=== PATIENT | female | born 1965 | race Caucasian/White ===

== ENCOUNTER 2017-09-08 03:10 | Emergency (ER) | payer BC ==
[~2017-09-08] VITALS: Ht 165.1 cm; Wt 73.9 kg
[2017-09-08] MEDS ORDERED: IOHEXOL 240 MG/ML 50ML VIAL. ONE (03:38)
--- NOTE | 2017-09-08 03:44 | PHYS DOC ---
Adult General Chief Complaint Chief Complaint: ABDOMINAL PAIN HPI HPI Patient is a 52-year-old female presents with complaints of abdominal pain that has been ongoing for 5 days. Patient states she's had low grade fevers, no vomiting, no diarrhea, no chest pain, no back pain, no trauma. Patient has had her gallbladder and appendix removed, no recent surgeries. No known sick contacts, patient denies any unusual vaginal discharge or problems with urination. Patient has no other complaints other than diffuse abdominal pain. Denies alcohol or illicit drug use. later pt states she has had non bloody vomiting at home. Review of Systems Review of Systems Constitutional: No chills, subjective fevers HENT: Denies nasal congestion or sore throat [] Respiratory: Denies cough or shortness of breath [] Cardiovascular: No chest pain GI: As per history of present illness : Denies dysuria or hematuria or vaginal discharge Musculoskeletal: Denies back pain or joint pain [] Integument: Denies rash or skin lesions [] Neurologic: Denies headache, focal weakness or sensory changes [] All other systems were reviewed and found to be within normal limits, except as documented in this note. Current Medications Current Medications Current Medications Medications (Trade) Dose Ordered Sig/Berna Start Time Stop Time Status Last Admin Dose Admin Iohexol (Omnipaque 240 Mg/ml) 50 ml STK-MED ONCE 09/08/17 03:38 09/08/17 03:39 DC Sodium Chloride 1,000 ml @ 1,000 mls/hr 1X ONCE 09/08/17 03:45 09/08/17 04:44 UNV Physical Exam Physical Exam Constitutional: Well developed, well nourished, no acute distress, non-toxic appearance. [] HENT: Normocephalic, atraumatic, bilateral external ears normal, oropharynx dry , no oral exudates, nose normal. [] Eyes: EOMI, conjunctiva normal, no discharge. [] Neck: Normal range of motion, trachea midline no stridor. [] Cardiovascular: Tachycardia, equal pulses, normal perfusion Lungs & Thorax: Bilateral breath sounds clear to auscultation, no tachypnea Abdomen: Bowel sounds normal, soft, diffuse tenderness to palpation mostly in upper abdomen without guarding or rebound, no masses, no pulsatile masses. [] Skin: Warm, dry, no erythema, no rash. [] Back: No tenderness, no CVA tenderness. [] Extremities: No tenderness, no DVT, ROM intact, no edema. [] Neurologic: Alert and oriented X 3, normal motor function,, no focal deficits noted. [] Psychologic: Affect normal, judgement normal, mood normal. [] EKG EKG 0347 sinus tachycardia, 112, no stemi[] Radiology/Procedures Radiology/Procedures CT read noted for acute pancreatitis[] Course & Med Decision Making Course & Med Decision Making Pertinent Labs and Imaging studies reviewed. (See chart for details) Findings discussed with Dr Villanueva who agrees is best to transfer patient to [place] [] Dragon Disclaimer Dragon Disclaimer This electronic medical record was generated, in whole or in part, using a voice recognition dictation system. Departure Departure: Impression: Primary Impression: Pancreatitis Additional Impressions: Acute renal failure (ARF) Dehydration Hypocalcemia Disposition: 05 XFER OTHER Condition: GUARDED Referrals: JOANN URIAS (PCP) Problem Qualifiers Eliecer GONZALEZ MD Sep 08, 2017 03:44
[2017-09-08] MEDS ORDERED: IV NORMAL SALINE 1,000ML 1,000 ML IV ONE ×2 (03:45→05:15)
--- NOTE | 2017-09-08 03:49 | EKG ---
[address] [address] Test Date: 2017-09-08 Test Time: 03:46:09 Pat Name: REA ESPINO Department: Room: Gender: F Ham Passer: YESENIA : 1965 Requested By: Eliecer GONZALEZ Order Number: [id number] Reading MD: Measurements Intervals [place] Rate: 112 P: 40 MO: 122 QRS: 24 QRSD: 76 T: 31 QT: 350 QTc: 479 Interpretive Statements SINUS TACHYCARDIA QRS(T) CONTOUR ABNORMALITY CONSIDER ANTEROLATERAL MYOCARDIAL DAMAGE POSSIBLY ABNORMAL ECG RI6.01 No previous ECG available for comparison
[2017-09-08] MEDS ORDERED: HYOSCYAMINE 0.125 MG TAB.RAPDIS PO ONE (04:30)
[2017-09-08] MEDS ORDERED: KETOROLAC 15 MG/ML VIAL. IV ONE (04:30)
[2017-09-08 04:38] LABS: BACTERIA,URINE FEW /HPF (0-FEW); BILIRUBIN,URINE NEG (NEG); CLARITY,URINE CLEAR; COLOR,URINE YELLOW; GLUCOSE,URINE NEG (NEG); NITRITE,URINE NEG (NEG); UROBILINOGEN,URINE 0.2 mg/dL (0.2 mg/dL); WBC,URINE OCC /HPF (0-4)
[2017-09-08 04:39] LABS: AMORPHOUS SEDIMENT,UR PRESENT /HPF; SQUAMOUS EPITHELIAL CELL,UR FEW /LPF
[2017-09-08 04:42] LABS: HEMOGLOBIN 13.5 g/dL (12.0-15.5)
[2017-09-08 04:43] LABS: BASO % 1 % (0-3); EOS % 0 % (0-3); HEMATOCRIT 41.1 % (36.0-47.0); LYMPH # 1.3 x10^3/uL (1.0-4.8); LYMPH % 5 % (24-48); MEAN CORPUSCULAR HEMOGLOBIN 29 pg (25-35); MEAN CORPUSCULAR HGB CONC 33 g/dL (31-37); MEAN CORPUSCULAR VOLUME 87 fL (79-100); MONO % 5 % (0-9); NEUT # 23.3 x10^3uL (1.8-7.7); NEUT % 90 % (31-73); PLATELET COUNT 259 x10^3/uL (140-400); RED CELL DISTRIBUTION WIDTH 14.5 % (11.5-14.5)
[2017-09-08 04:44] LABS: BASO # 0.2 x10^3/uL (0.0-0.2); EOS # 0.1 x10^3/uL (0.0-0.7); MONO # 1.2 x10^3/uL (0.0-1.1)
[2017-09-08] MEDS ORDERED: CONTRAST GIVEN MC PRN (04:45)
[2017-09-08] MEDS ORDERED: IOHEXOL 300 MG/ML 75 ML VIAL. IV ONE (04:45)
[2017-09-08 04:48] LABS: ALBUMIN/GLOBULIN RATIO 0.9 (1.0-1.7); CALCIUM 6.5 mg/dL (8.5-10.1); CREATININE 5.6 mg/dL (0.6-1.0); GFR 7.9; POTASSIUM 3.9 mmol/L (3.5-5.1); TOTAL BILIRUBIN 0.7 mg/dL (0.2-1.0); TOTAL PROTEIN 6.3 g/dL (6.4-8.2)
[2017-09-08 05:01] LABS: BARBITURATES NEG (NEG); BENZODIAZEPINES NEG (NEG); CANNABINOIDS NEG (NEG); COCAINE NEG (NEG); METHADONE NEG (NEG); OPIATES NEG (NEG); PHENCYCLIDINE NEG (NEG)
[2017-09-08 05:02] LABS: AMPHETAMINE/METHAMPHETAMINE NEG (NEG)
[2017-09-08 05:21] LABS: % SEGS 91 % (35-66)
[2017-09-08 05:22] LABS: % EOS 1 % (0-5); % LYMPHS 6 % (24-48); % MONOS 2 % (0-10); ANISOCYTOSIS SLIGHT; PLT ESTIMATE ADEQUATE (ADEQUATE); SPHEROCYTES OCC; TEAR DROP CELLS OCC
--- NOTE | 2017-09-08 05:30 | RAD ---
PQRS Compliance Statement: One or more of the following individualized dose reduction techniques were utilized for this examination: 1. Automated exposure control 2. Adjustment of the mA and/or kV according to patient size 3. Use of iterative reconstruction technique CT ABD PELV W/ORAL IV CONTRAST Clinical Indication: Generalized abdominal pain x5 days - worsening. Appendectomy and cholecystectomy. Comparison: CT abdomen and pelvis without contrast, December 30, 2013. Technique: Helical CT imaging of the abdomen and pelvis is performed after 75 cc Omnipaque 300 IV contrast. Oral contrast also given. Findings: Small left pleural effusion. Mild consolidations in the posterior bilateral lower lobes, probably atelectasis. Mild scarring or atelectasis in the inferior lingula. Cardiac size normal. There is severe peripancreatic inflammation and fluid. There is hypoenhancement at the pancreas head/body junction and developing necrosis cannot be excluded. There is no organized pseudocyst. Free fluid tracks along the bilateral paracolic gutters, moderate. There is mild right subphrenic free fluid. There is hyperenhancement of the wall of the extrahepatic duct. No filling defect is identified by CT. Cholecystectomy. Liver, spleen, adrenal glands, and abdominal aorta caliber are normal. No hydronephrosis. Small left renal cyst. Stomach unremarkable. No small bowel obstruction. There is no colon wall thickening. Appendectomy. Small fat-containing umbilical hernia. Urinary bladder is normal. Uterus unremarkable. Mild pelvic free fluid. No acute bone abnormality. IMPRESSION: 1. There is severe acute pancreatitis. There is hypoenhancement at the pancreas head/body junction, cannot exclude developing necrosis. No pancreas pseudocyst. 2. Moderate fluid tracks along the bilateral paracolic gutters. There is mild pelvic free fluid. 3. Hyperenhancement of the wall of the extrahepatic bile duct. The enhancement may be reactive due to surrounding inflammation. Cholangitis also in the differential. 4. Small left pleural effusion. Mild posterior bilateral lower lobe consolidations, probably atelectasis in the absence of respiratory symptoms. Electronically signed by: Mariano Godoy MD (09/08/2017 5:27 AM) [facility]
[2017-09-08] MEDS ORDERED: MORPHINE SULFATE 4 MG/ML DISP.SYRIN. IV ONE (06:00)
[2017-09-08] MEDS ORDERED: HYDROmorphone PF 1 MG/ML DISP.SYRIN IV ONE (06:00)
[2017-09-08] MEDS ORDERED: HYDROmorphone PF 2 MG/ML VIAL IV ONE (06:00)
[2017-09-08 06:36] VITALS: BP 145/84
== END 2017-09-08 07:17 | disposition short-term general hospital (02) ==
LOC: ER 03:10
DX: K85.90 Acute pancreatitis without necrosis or infection, unspecified (principal); N17.9 Acute kidney failure, unspecified; E83.51 Hypocalcemia; E86.0 Dehydration; Z90.49 Acquired absence of other specified parts of digestive tract
CPT/HCPCS: 36415; 74177; 80053; 80307; 81001; 82310; 83690; 83735; 84484; 85007; 85025; 93005; 96361; 96374; 96375; 99285; J1170; J1885; Q9967; G0479; J7030

== ENCOUNTER → 2019-07-29 | Day surgery (SDC) | payer BC ==
[~2019-07-29] MED LIST: ACETAMINOPHEN 325 MG TABLET PO PRN; ALBUTEROL SULFATE 2.5 MG/3 ML NEBU. NEB PRN; ATROPINE 0.5 MG/5 ML DISP.SYRIN. IV PRN; BUPR100T7 PO; FLUO10CA13 PO; IV RINGERS SOLUTION,LACTATED 1,000 ML IV SCH; METH2.5T PO; MIDAZOLAM HCL PF 2 MG/2 ML VIAL. IV PRN; OLAN2.5T3 PO; ONDANSETRON PF 4 MG/2 ML VIAL. IV PRN; PHENOL ORAL SPRAY 177ML BOTTLE. MM PRN; PROPOFOL 20 ML IV ONE; diphenhydrAMINE 50 MG/ML VIAL IV PRN
[2019-07-29 09:00] VITALS: BP 112/64
--- NOTE | 2019-07-30 15:07 | PATHOLOGY ---
[facility] Accession Number: [id number] . 01 Material submitted: . PART A: cecum - CECAL POLYP BX PART B: colon - TRANSVERSE POLYP BX. Modifiers: transverse . 01 Clinical history: . CRC screen . 02 Diagnosis: A. Colon biopsies, cecal polyp: - Tubular adenoma. . B. Colon biopsies, transverse colon polyp: - Tubular adenoma. . (JPM:juan; 07/30/2019) QMS 07/30/2019 0844 Local . 02 Comment: There is no high grade dysplasia or evidence of malignancy. . 02 Electronically signed: . Montez Martinez MD, Pathologist NPI- [id number] . 01 Gross description: . A. The specimen is received in formalin, labeled "Michel, Isaura, cecal polyp BX" and consists of 2 fragments of pink-abbott tissue measuring 0.3 x 0.3 cm each which are entirely submitted in A1. . B. The specimen is received in formalin, labeled "Michel, Isaura, transverse polyp BX" and consists of 3 fragments of pink-abbott tissue measuring between 0.2 x 0.2 cm and 0.4 x 0.3 cm which are entirely submitted in B1. (SDY; 07/29/2019) SYU/SYU 07/30/2019 0843 Local . 02 Pathologist provided ICD-10: D12.0, D12.3 . 02 CPT . 495028, 644945 Specimen Comment: A courtesy copy of this report has been sent to [phone] Specimen Comment: [id number] Specimen Comment: Report sent to / DR URIAS Performed at: [address], [place], [place] [id number] MD Saji Watts MD Phone: [phone] Performed at: [address] [id number] MD Montez Martinez MD Phone: [phone]
== END | disposition home or self-care (01) ==
LOC: SURG 07:01
PROVIDERS: ATTEND Emergency Medicine
DX: Z12.11 Encounter for screening for malignant neoplasm of colon (principal); D12.3 Benign neoplasm of transverse colon; D12.0 Benign neoplasm of cecum; J45.909 Unspecified asthma, uncomplicated; F32.9 Major depressive disorder, single episode, unspecified; Z86.010 Personal history of colon polyps; Z79.899 Other long term (current) drug therapy; Z98.890 Other specified postprocedural states; Z88.0 Allergy status to penicillin; Z88.6 Allergy status to analgesic agent; Z88.8 Allergy status to other drugs, medicaments and biological substances; Z72.89 Other problems related to lifestyle
CPT/HCPCS: 45380; 88305; J2704; J7120

== ENCOUNTER 2021-06-09 12:50 | Emergency (ER) | payer BC ==
[~2021-06-09] VITALS: Ht 163.8 cm; Wt 54.7 kg
[~2021-06-09 12:50] MED LIST changes: -ACETAMINOPHEN 325 MG TABLET PO PRN; -ALBUTEROL SULFATE 2.5 MG/3 ML NEBU. NEB PRN; -ATROPINE 0.5 MG/5 ML DISP.SYRIN. IV PRN; -IV RINGERS SOLUTION,LACTATED 1,000 ML IV SCH; -MIDAZOLAM HCL PF 2 MG/2 ML VIAL. IV PRN; -ONDANSETRON PF 4 MG/2 ML VIAL. IV PRN; -PHENOL ORAL SPRAY 177ML BOTTLE. MM PRN; -PROPOFOL 20 ML IV ONE; -diphenhydrAMINE 50 MG/ML VIAL IV PRN
--- NOTE | 2021-06-09 14:45 | EKG ---
[address] [address] Test Date: 2021-06-09 Test Time: 14:35:15 Pat Name: REA ESPINO Department: Room: Gender: F Credit Verification Clerk: CELINA : 1965 Requested By: PEGGY ALVAREZ Order Number: [id number] Reading MD: Measurements Intervals [place] Rate: 102 P: 39 VT: 124 QRS: 25 QRSD: 90 T: 106 QT: 352 QTc: 463 Interpretive Statements SINUS TACHYCARDIA T ABNORMALITY IN INFERIOR LEADS ABNORMAL ECG RI6.02 No previous ECG available for comparison
--- NOTE | 2021-06-09 14:48 | PHYS DOC ---
Past History Past Medical History: Anxiety, Depression, Pneumonia Past Surgical History: Appendectomy, Cholecystectomy Alcohol Use: None Drug Use: None General Adult EDM: Chief Complaint: SHORTNESS OF BREATH HPI: HPI: 55-year-old female presents with shortness of breath. Her shortness of breath came on relatively suddenly today. She has been feeling a little bit more short of breath last couple of days but today is much worse. Patient was diagnosed COVID-19 +6 days ago. She has been vaccinated, second Pfizer shot in January. Patient has no previous history of cardiac or lung disease. She denies chest pain or diaphoresis. The patient is requiring 4 L of oxygen and she has not previously been on oxygen. Review of Systems: Review of Systems: Constitutional: Denies fever or chills Eyes: Denies change in visual acuity HENT: Denies nasal congestion or sore throat Respiratory: Cough with shortness of breath Cardiovascular: Denies chest pain or edema GI: Denies abdominal pain, nausea, vomiting, bloody stools or diarrhea : Denies dysuria Musculoskeletal: Denies back pain or joint pain Integument: Denies rash Neurologic: Denies headache, focal weakness or sensory changes Endocrine: Denies polyuria or polydipsia Lymphatic: Denies swollen glands Psychiatric: Denies depression or anxiety Allergies: Allergies: Allergies Coded Allergies Type Severity Reaction Last Updated Verified Penicillins Allergy Unknown 06/09/21 Yes methadone Allergy Unknown 06/09/21 Yes morphine Allergy Unknown 06/09/21 Yes Physical Exam: PE: Constitutional: Well developed, well nourished, no acute distress, non-toxic appearance. [] HENT: Normocephalic, atraumatic, bilateral external ears normal, oropharynx moist, no oral exudates, nose normal. [] Eyes: PERRLA, EOMI, conjunctiva normal, no discharge. [] Neck: Normal range of motion, no tenderness, supple, no stridor. [] Cardiovascular:Heart rate regular rhythm, no murmur [] Lungs & Thorax: Bilateral breath sounds coarse and diminished [] Abdomen: Bowel sounds normal, soft, no tenderness, no masses, no pulsatile masses. [] Skin: Warm, dry, no erythema, no rash. [] Back: No tenderness, no CVA tenderness. [] Extremities: No tenderness, no cyanosis, no clubbing, ROM intact, no edema. [] Neurologic: Alert and oriented X 3, normal motor function, normal sensory function, no focal deficits noted. [] Psychologic: Affect normal, judgement normal, mood concerned. [] Current Patient Data: Vital Signs: Vital Signs Date Time Temp Pulse Resp B/P (MAP) Pulse Ox O2 Delivery O2 Flow Rate FiO2 06/09/21 14:21 97.7 101 24 108/72 (84) 88 Room Air EKG: EKG: Sinus rhythm, rate 102, axis, no ST elevation or depression. [] Radiology/Procedures: Radiology/Procedures: [] Impressions: Study: CT CHEST WITH CONTRAST - PULMONARY ANGIOGRAM History: Covid positive, sudden onset shortness of breath needing 4 L. Comparison: Chest 06/09/2021 Technique: Helical CT of the chest performed after the administration of 75 mm Omnipaque 350 intravenous contrast and timed for angiographic evaluation of the pulmonary arteries per PE protocol. Coronal and sagittal 3D MIP reformations were obtained. One or more of the following individualized dose reduction techniques were utilized for this examination: 1. Automated exposure control 2. Adjustment of the mA and/or kV according to patient size 3. Use of iterative reconstruction technique. Findings: Pulmonary Arteries: Contrast bolus is adequate. There is no acute pulmonary embolism. Heart/Systemic Vasculature: There is normal in size. No pericardial effusion. Thoracic aorta is normal in caliber. Mediastinum: There is an enlarged right prevascular lymph node measuring 1.4 x 0.8 cm. Prominent precarinal lymph node measuring 1.5 x 0.8 cm. Enlarged subcarinal lymph node measuring 2.4 x 1.0 cm. There are mildly enlarged right hilar lymph nodes. Lungs: There are patchy consolidative opacities in the right lower lobe, greatest peripherally. Diffuse tree-in-bud nodules in the right lower lobe. Milder scattered tree-in-bud nodules and mild scattered groundglass opacities elsewhere in both lungs. There is airway wall thickening. Mucous plugging seen in the right lower lobe. No pleural effusion. Neck/Axilla/Body Wall: No axillary lymphadenopathy. Upper Abdomen: There is a 1.9 x 0.8 cm hypoattenuating lesion along falciform ligament, likely focal fat. Surgical changes of cholecystectomy. Bones: No acute osseous abnormality. IMPRESSION: 1. No acute pulmonary embolism. 2. Consolidative and tree-in-bud opacities in the right lower lobe. Scattered tree-in-bud opacities and mild scattered groundglass opacities elsewhere in the lungs. Findings are suspicious for atypical pneumonia. 3. Mild mediastinal and hilar lymphadenopathy, likely reactive. Electronically signed by: Pamella Stanford MD (06/09/2021 5:04 PM) [id number] DICTATED AND SIGNED BY: PAMELLA STANFORD MD DATE: 06/09/215 CC: PEGGY ALVAREZ DO; JOANN URIAS ~MTH0 0 Heart Score: C/O Chest Pain: N/A Risk Factors: Risk Factors: DM, Current or recent (<one month) smoker, HTN, HLP, family history of CAD, obesity. Risk Scores: Score 0 - 3: 2.5% MACE over next 6 weeks - Discharge Home Score 4 - 6: 20.3% MACE over next 6 weeks - Admit for Clinical Observation Score 7 - 10: 72.7% MACE over next 6 weeks - Early Invasive Strategies Course & Med Decision Making: Course & Med Decision Making Pertinent Labs and Imaging studies reviewed. (See chart for details) The patient's EKG is unremarkable. Her labs are remarkable for an elevated white count with a left shift. She has a CO2 of 9 and an anion gap of 25, blood sugar 400. Patient has not been taking her insulin for some reason. I have ordered a liter normal saline and 10 units of insulin. The patient CT scan shows bilateral atypical pneumonia consistent with COVID-19. I will treat her with azithromycin given her penicillin allergy. She will need to be admitted to the hospital for her new oxygen demand and to deal with her DKA. The patient's initial 2 units of insulin will decrease her blood sugar to 231. I believe her blood sugar can be managed without an insulin drip. I spoke with hospitalist, Dr. Ortiz and he is in agreement. He is agreed admit the patient to the telemetry floor. [] Solange Disclaimer: Solange Disclaimer: This electronic medical record was generated, in whole or in part, using a voice recognition dictation system. Departure Departure: Impression: Primary Impression: COVID-19 Additional Impression: DKA (diabetic ketoacidosis) Qualified Codes: E11.10 - Type 2 diabetes mellitus with ketoacidosis without coma Disposition: ADMITTED INPATIENT Admitting Physician: Ho, Trino Condition: STABLE Referrals: JOANN URIAS (PCP) PEGGY ALVAREZ DO Jun 09, 2021 14:47
[2021-06-09] MEDS ORDERED: IOHEXOL 350 MG/ML 100 ML VIAL. IV ONE (15:00)
[2021-06-09 15:15] LABS: BASO % 0 % (0-3); EOS % 0 % (0-3); HEMATOCRIT 46.3 % (36.0-47.0); LYMPH # 1.1 x10^3/uL (1.0-4.8); LYMPH % 7 % (24-48); MEAN CORPUSCULAR HEMOGLOBIN 29 pg (25-35); MEAN CORPUSCULAR HGB CONC 32 g/dL (31-37); MEAN CORPUSCULAR VOLUME 90 fL (79-100); MONO # 1.7 x10^3/uL (0.0-1.1); MONO % 11 % (0-9); NEUT # 13.2 x10^3uL (1.8-7.7); NEUT % 82 % (31-73); PLATELET COUNT 332 x10^3/uL (140-400); RED BLOOD COUNT 5.17 x10^6/uL (3.50-5.40); RED CELL DISTRIBUTION WIDTH 13.7 % (11.5-14.5)
[2021-06-09] MEDS ORDERED: IV NORMAL SALINE 1,000ML 1,000 ML IV ONE (15:15)
--- NOTE | 2021-06-09 15:16 | RAD ---
Single view of the chest. 06/09/2021 3:00 PM Indication: Reason: SOB / Comparison: chest radiograph May 13, 2024 2 Findings: There is no focal consolidation. There is no pleural effusion or pneumothorax. The cardiome diastinal silhouette and pulmonary vasculature are within normal limits. No acute osseous abnormaliti es are seen. Impression: No evidence of acute cardiopulmonary process. Electronically signed by: Josh Forbes MD (06/09/2021 3:14 PM) [id number]
[2021-06-09 15:31] LABS: ALBUMIN 3.5 g/dL (3.4-5.0); ALBUMIN/GLOBULIN RATIO 0.6 (1.0-1.7); CALCIUM 10.5 mg/dL (8.5-10.1); CREATININE 1.1 mg/dL (0.6-1.0); GFR 51.2; TOTAL BILIRUBIN 0.5 mg/dL (0.2-1.0); TOTAL PROTEIN 9.1 g/dL (6.4-8.2)
[2021-06-09 16:00] LABS: % BANDS 23 % (0-9); % LYMPHS 14 % (24-48); % METAS 2 % (0-0); % MONOS 7 % (0-10); % SEGS 54 % (35-66)
[2021-06-09 16:01] LABS: PLT ESTIMATE ADEQUATE (ADEQUATE)
[2021-06-09] MEDS ORDERED: INSULIN REGULAR 100 UNIT/ML 3ML VIAL. IV ONE ×2 (16:15→17:45)
--- NOTE | 2021-06-09 17:07 | RAD ---
Study: CT CHEST WITH CONTRAST - PULMONARY ANGIOGRAM History: Covid positive, sudden onset shortness of breath needing 4 L. Comparison: Chest 06/09/2021 Technique: Helical CT of the chest performed after the administration of 75 mm Omnipaque 350 intrave nous contrast and timed for angiographic evaluation of the pulmonary arteries per PE protocol. Mata l and sagittal 3D MIP reformations were obtained. One or more of the following individualized dose reduction techniques were utilized for this examinat ion: 1. Automated exposure control 2. Adjustment of the mA and/or kV according to patient size 3. Use of iterative reconstruction technique. Findings: Pulmonary Arteries: Contrast bolus is adequate. There is no acute pulmonary embolism. Heart/Systemic Vasculature: There is normal in size. No pericardial effusion. Thoracic aorta is emilio l in caliber. Mediastinum: There is an enlarged right prevascular lymph node measuring 1.4 x 0.8 cm. Prominent prec arinal lymph node measuring 1.5 x 0.8 cm. Enlarged subcarinal lymph node measuring 2.4 x 1.0 cm. Ther e are mildly enlarged right hilar lymph nodes. Lungs: There are patchy consolidative opacities in the right lower lobe, greatest peripherally. Diffu se tree-in-bud nodules in the right lower lobe. Milder scattered tree-in-bud nodules and mild scatter ed groundglass opacities elsewhere in both lungs. There is airway wall thickening. Mucous plugging se en in the right lower lobe. No pleural effusion. Neck/Axilla/Body Wall: No axillary lymphadenopathy. Upper Abdomen: There is a 1.9 x 0.8 cm hypoattenuating lesion along falciform ligament, likely focal fat. Surgical changes of cholecystectomy. Bones: No acute osseous abnormality. IMPRESSION: 1. No acute pulmonary embolism. 2. Consolidative and tree-in-bud opacities in the right lower lobe. Scattered tree-in-bud opacities and mild scattered groundglass opacities elsewhere in the lungs. Findings are suspicious for atypical pneumonia. 3. Mild mediastinal and hilar lymphadenopathy, likely reactive. Electronically signed by: Pamella Stanford MD (06/09/2021 5:04 PM) [id number]
[2021-06-09] MEDS ORDERED: AZITHROMYCIN 250 MG TABLET. PO ONE (17:30)
[2021-06-09] MEDS ORDERED: ACETAMINOPHEN 325 MG TABLET PO PRN (17:45)
[2021-06-09] MEDS ORDERED: ONDANSETRON PF 4 MG/2 ML VIAL. IVP PRN (17:45)
[2021-06-09] MEDS ORDERED: BUDESONIDE 0.5 MG/2 ML NEBU ONE (17:59)
[2021-06-09] MEDS ORDERED: IPRATRPIUM/ALBUTEROL 0.5/2.5MG 3 ML NEBU. ONE (17:59)
[2021-06-09] MEDS ORDERED: DEXTROSE 50% 25 GM / 50ML DISP.SYRIN. IV PRN (18:15)
[2021-06-09 18:44] LABS: BACTERIA,URINE FEW /HPF (0-FEW); BILIRUBIN,URINE SMALL (NEG); CLARITY,URINE CLEAR; COLOR,URINE YELLOW; GLUCOSE,URINE 500 mg/dL (NEG); HYALINE CASTS, URINE OCC /HPF; NITRITE,URINE NEG (NEG); RBC,URINE OCC /HPF (0-2); SQUAMOUS EPITHELIAL CELL,UR FEW /LPF; UROBILINOGEN,URINE 0.2 mg/dL (0.2 mg/dL); WBC,URINE OCC /HPF (0-4)
[2021-06-09] MEDS ORDERED: OLAN20TA15 PO (18:45)
[2021-06-09] MEDS ORDERED: FLUO20CA22 PO (18:46)
[2021-06-09] MEDS ORDERED: BUPR150T21 PO (18:48)
[2021-06-09] MEDS ORDERED: IPRATRPIUM/ALBUTEROL 0.5/2.5MG 3 ML NEBU. NEB SCH (20:00)
[2021-06-09] MEDS ORDERED: QUET100T4 PO (20:09)
[2021-06-09] MEDS ORDERED: QUEtiapine 100 MG TABLET. PO SCH (21:00)
[2021-06-09] MEDS ORDERED: OLANZAPINE 20 MG PO SCH (21:00)
[2021-06-09] MEDS: IPRATROPIUM/ALBUTEROL 20/100mcg/INH INHALER. INH SCH (21:08)
[2021-06-10] MEDS ORDERED: IPRATRPIUM/ALBUTEROL 0.5/2.5MG 3 ML NEBU. ONE (07:21)
[2021-06-10] MEDS: IPRATROPIUM/ALBUTEROL 20/100mcg/INH INHALER. INH SCH (07:25)
[2021-06-10] MEDS ORDERED: INSULIN REGULAR 100 UNIT/ML 3ML VIAL. IV ONE (07:30)
[2021-06-10] MEDS ORDERED: INSULIN LISPRO 300 UNITS/3 ML VIAL. SQ SCH (08:00)
[2021-06-10] MEDS ORDERED: SODIUM BICARB ADULT 8.4% 50 MEQ/50 ML DISP.SYRIN. ONE (08:48)
[2021-06-10] MEDS ORDERED: buPROPion XL 150 MG TAB.ER.24H PO SCH (09:00)
[2021-06-10] MEDS ORDERED: SODIUM BICARB ADULT 8.4% 50 MEQ/50 ML DISP.SYRIN. IV ONE ×2 (09:00)
[2021-06-10] MEDS ORDERED: DEXTROSE 50% 25 GM / 50ML DISP.SYRIN. IV PRN (09:15)
[2021-06-10] MEDS ORDERED: INSULIN REGULAR VIAL 100 UNIT in IV NORMAL SALINE 100ML 100 ML IV PRN (09:15)
--- NOTE | 2021-06-10 12:03 | HP ---
DATE OF SERVICE: 06/10/2021 ADMIT DATE: 06/09/2021 ATTENDING PHYSICIAN: Dr. Ortiz. The patient was seen in the ER. I was asked to see the patient for admission. I got a call yesterday, 06/09/2021, from Dr. Schulz. This is a 55-year-old female with increasing shortness of breath. She was diagnosed with COVID-19 a week ago. She has been vaccinated in November twice. She still had symptoms. She was short of breath. She required 4 liters of oxygen by nasal cannula to maintain oxygen saturations. On the evening of 06/09/2021, I accepted the patient for admission. Because of availability of beds, she remained in the ED overnight. I went to see the patient early on the morning of 06/10/2021. Since that time, she has gotten worse. She is diabetic. Sugars are abnormally high and she has a significant metabolic acidosis requiring sodium bicarbonate. Clinically, she is very diaphoretic and giving her degree of medical issues, she was unstable for admission to the regular hospital. Arrangements were then made for the patient to go to a larger hospital, we are trying for [facility]. I saw the patient and discussed the case with Dr. Schulz. In any event, she was originally admitted to me, I did not admit the patient. I saw her briefly. She had gotten worse clinically and was being transferred to [facility] in [place], [place]. TALIA DR: Anselmo TID: [id number] CC: JOANN URIAS
[2021-06-10 12:17] VITALS: BP 113/64
== END 2021-06-10 12:30 | disposition short-term general hospital (02) ==
LOC: ER 12:50
DX: U07.1 COVID-19 (principal); E11.10 Type 2 diabetes mellitus with ketoacidosis without coma; Z88.0 Allergy status to penicillin; Z88.6 Allergy status to analgesic agent; Z90.49 Acquired absence of other specified parts of digestive tract
CPT/HCPCS: 36415; 71045; 71275; 80053; 81001; 82803; 82947; 84484; 85007; 85025; 93005; 94640; 96361; 96365; 96366; 96375; 96376; 99285; J1815; J7030; Q9967; 94664

== ENCOUNTER → 2021-08-10 | Outpatient (CLI) | payer BC ==
[~2021-08-10] MED LIST changes: +BUPR150T21 PO; +FLUO20CA22 PO; +OLAN20TA15 PO; +QUET100T4 PO
[2021-08-10 10:37] LABS: BASO # 0.1 x10^3/uL (0.0-0.2); BASO % 1 % (0-3); EOS # 0.2 x10^3/uL (0.0-0.7); EOS % 2 % (0-3); HEMATOCRIT 38.9 % (36.0-47.0); HEMOGLOBIN 12.5 g/dL (12.0-15.5); LYMPH # 1.8 x10^3/uL (1.0-4.8); LYMPH % 28 % (24-48); MEAN CORPUSCULAR HEMOGLOBIN 28 pg (25-35); MEAN CORPUSCULAR HGB CONC 32 g/dL (31-37); MEAN CORPUSCULAR VOLUME 88 fL (79-100); MONO # 0.3 x10^3/uL (0.0-1.1); MONO % 5 % (0-9); NEUT # 4.1 x10^3uL (1.8-7.7); NEUT % 64 % (31-73); PLATELET COUNT 386 x10^3/uL (140-400); RED BLOOD COUNT 4.44 x10^6/uL (3.50-5.40); RED CELL DISTRIBUTION WIDTH 17.2 % (11.5-14.5); WHITE BLOOD COUNT 6.5 x10^3/uL (4.0-11.0)
[2021-08-10 10:52] LABS: ALBUMIN 3.6 g/dL (3.4-5.0); ALBUMIN/GLOBULIN RATIO 0.9 (1.0-1.7); CALCIUM 9.3 mg/dL (8.5-10.1); CREATININE 0.7 mg/dL (0.6-1.0); GFR 85.9; POTASSIUM 4.3 mmol/L (3.5-5.1); TOTAL BILIRUBIN 0.2 mg/dL (0.2-1.0); TOTAL PROTEIN 7.8 g/dL (6.4-8.2)
== END ==
LOC: LAB 09:23
PROVIDERS: ATTEND Family Medicine
DX: R10.9 Unspecified abdominal pain (principal)
CPT/HCPCS: 36415; 80053; 82150; 83690; 85025

== ENCOUNTER 2021-09-07 10:29 | Emergency (ER) | payer BC ==
[~2021-09-07] VITALS: Ht 163.8 cm; Wt 54.7 kg
--- NOTE | 2021-09-07 10:43 | PHYS DOC ---
Past History Past Medical History: Anxiety, Depression, Pneumonia Past Surgical History: Appendectomy, Cholecystectomy Alcohol Use: None Drug Use: None General Adult EDM: Chief Complaint: BLOOD SUGAR PROBLEM HPI: HPI: 56-year-old female presents via EMS with low blood sugar. The patient is a type I diabetic. She tells me that she took insulin this morning and then forgot to eat. She does not remember EMS picking her up. EMS reports that when they arrived at her house her blood sugar was 27. They could not immediately get an IV so they gave her 1 of glucagon. On arrival to the emergency room her blood sugar was 97. Patient tells me that she feels well, but admits to being a little foggy mentally from the low blood sugar. She has no specific complaints at this time. Review of Systems: Review of Systems: Constitutional: Denies fever or chills. Hypoglycemia. Eyes: Denies change in visual acuity HENT: Denies nasal congestion or sore throat Respiratory: Denies cough or shortness of breath Cardiovascular: Denies chest pain or edema GI: Denies abdominal pain, nausea, vomiting, bloody stools or diarrhea : Denies dysuria Musculoskeletal: Denies back pain or joint pain Integument: Denies rash Neurologic: Denies headache, focal weakness or sensory changes Endocrine: Denies polyuria or polydipsia Lymphatic: Denies swollen glands Psychiatric: Denies depression or anxiety Current Medications: Current Meds: Current Medications Medications (Trade) Dose Ordered Sig/Berna Start Time Stop Time Status Last Admin Dose Admin Dextrose (Dextrose 50%-Water Syringe) 25 gm 1X ONCE 09/07/21 10:45 09/07/21 10:46 UNV Sodium Chloride 1,000 ml @ 1,000 mls/hr 1X ONCE 09/07/21 10:45 09/07/21 11:44 UNV Allergies: Allergies: Allergies Coded Allergies Type Severity Reaction Last Updated Verified Penicillins Allergy Unknown 06/09/21 Yes methadone Allergy Unknown 06/09/21 Yes morphine Allergy Unknown 06/09/21 Yes Physical Exam: PE: Constitutional: Well developed, well nourished, no acute distress, non-toxic appearance. [] HENT: Normocephalic, atraumatic, bilateral external ears normal, oropharynx dry, no oral exudates, nose normal. [] Eyes: PERRLA, EOMI, conjunctiva normal, no discharge. [] Neck: Normal range of motion, no tenderness, supple, no stridor. [] Cardiovascular: Heart rate regular rhythm, no murmur [] Lungs & Thorax: Bilateral breath sounds clear to auscultation [] Abdomen: Bowel sounds normal, soft, no tenderness, no masses, no pulsatile masses. [] Skin: Warm, dry, no erythema, no rash. [] Back: No tenderness, no CVA tenderness. [] Extremities: No tenderness, no cyanosis, no clubbing, ROM intact, no edema. [] Neurologic: Alert and oriented X 3, normal motor function, normal sensory function, no focal deficits noted. [] Psychologic: Affect normal, judgement normal, mood normal. [] Current Patient Data: Labs: Laboratory Tests Test 09/07/21 10:32 Glucose (Fingerstick) 97 mg/dL (70-99) EKG: EKG: [] Radiology/Procedures: Radiology/Procedures: [] Heart Score: C/O Chest Pain: N/A Risk Factors: Risk Factors: DM, Current or recent (<one month) smoker, HTN, HLP, family history of CAD, obesity. Risk Scores: Score 0 - 3: 2.5% MACE over next 6 weeks - Discharge Home Score 4 - 6: 20.3% MACE over next 6 weeks - Admit for Clinical Observation Score 7 - 10: 72.7% MACE over next 6 weeks - Early Invasive Strategies Course & Med Decision Making: Course & Med Decision Making Pertinent Labs and Imaging studies reviewed. (See chart for details) The patient has elevated white count. She has some other lab abnormalities that are likely noncontributory to her complaint.. See labs for more details. I will give him a liter normal saline. She has been able to drink some juice in the emergency room. Her blood sugar has improved significantly. She has not dropped to an abnormally low level since arrival. The patient would like to go home. She is stable for discharge at this time. [] Dragon Disclaimer: Dragon Disclaimer: This electronic medical record was generated, in whole or in part, using a voice recognition dictation system. Departure Departure: Impression: Primary Impression: Hypoglycemia due to type 1 diabetes mellitus Disposition: HOME / SELF CARE / HOMELESS Condition: STABLE Referrals: JOANN URIAS (PCP) Patient Instructions: Hypoglycemia, [id number] PEGGY ALVAREZ DO Sep 07, 2021 10:43
[2021-09-07] MEDS ORDERED: IV NORMAL SALINE 1,000ML 1,000 ML IV ONE (10:45)
[2021-09-07] MEDS ORDERED: DEXTROSE 50% 25 GM / 50ML DISP.SYRIN. IV ONE (10:45)
[2021-09-07 11:04] LABS: BASO # 0.1 x10^3/uL (0.0-0.2); BASO % 1 % (0-3); EOS # 0.1 x10^3/uL (0.0-0.7); EOS % 1 % (0-3); HEMATOCRIT 42.8 % (36.0-47.0); HEMOGLOBIN 13.6 g/dL (12.0-15.5); LYMPH # 1.6 x10^3/uL (1.0-4.8); LYMPH % 10 % (24-48); MEAN CORPUSCULAR HEMOGLOBIN 28 pg (25-35); MEAN CORPUSCULAR HGB CONC 32 g/dL (31-37); MEAN CORPUSCULAR VOLUME 88 fL (79-100); MONO % 6 % (0-9); NEUT # 14.1 x10^3uL (1.8-7.7); NEUT % 83 % (31-73); PLATELET COUNT 406 x10^3/uL (140-400); RED BLOOD COUNT 4.86 x10^6/uL (3.50-5.40); RED CELL DISTRIBUTION WIDTH 17.2 % (11.5-14.5); WHITE BLOOD COUNT 16.9 x10^3/uL (4.0-11.0)
[2021-09-07 11:47] LABS: CALCIUM 8.8 mg/dL (8.5-10.1); CREATININE 0.7 mg/dL (0.6-1.0); GFR 85.9
[2021-09-07 11:53] LABS: ALBUMIN 2.9 g/dL (3.4-5.0); ALBUMIN/GLOBULIN RATIO 0.7 (1.0-1.7); TOTAL BILIRUBIN 0.2 mg/dL (0.2-1.0); TOTAL PROTEIN 7.2 g/dL (6.4-8.2)
[2021-09-07 12:16] VITALS: BP 123/71
[2021-09-07 12:47] LABS: % BANDS 11 % (0-9); % LYMPHS 17 % (24-48); % MONOS 5 % (0-10); % MYELOS 1 % (0-0); % SEGS 66 % (35-66)
[2021-09-07 12:50] LABS: ANISOCYTOSIS PRESENT; HYPOCHROMIA PRESENT; MICROCYTOSIS PRESENT
[2021-09-07 12:52] LABS: PLT ESTIMATE INCREASED (ADEQUATE)
== END 2021-09-07 12:27 | disposition home or self-care (01) ==
LOC: ER 10:29
DX: E10.649 Type 1 diabetes mellitus with hypoglycemia without coma (principal); F41.9 Anxiety disorder, unspecified; F32.9 Major depressive disorder, single episode, unspecified; Z88.0 Allergy status to penicillin; Z88.5 Allergy status to narcotic agent; Z88.8 Allergy status to other drugs, medicaments and biological substances
CPT/HCPCS: 36415; 80053; 82947; 85007; 85025; 96361; 96374; 99283; J7030

== ENCOUNTER → 2021-11-24 | Emergency (ER) | payer BC ==
[~2021-11-24] VITALS: Ht 163.8 cm; Wt 72.2 kg
[~2021-11-24] MED LIST changes: +OLANZapine 2.5 MG TABLET PO ONE; +QUEtiapine 100 MG TABLET. PO ONE
--- NOTE | 2021-11-24 17:21 | PHYS DOC ---
Past History Past Medical History: Anxiety, Depression, Pneumonia (HERNANDEZ ANDREWS MD) Past Surgical History: Appendectomy, Cholecystectomy (HERNANDEZ ANDREWS MD) Alcohol Use: None Drug Use: None (HERNANDEZ ANDREWS MD) Adult General Chief Complaint Chief Complaint: Drug overdose HPI HPI Patient is a 56 year old female who presents to the emergency department for evaluation of reported insulin overdose. Patient brought to the emergency department by her . The patient reportedly took 11 units of insulin aspart at approximately noon today to intentionally try to put herself into a coma. When she was found at home to be lethargic and minimally responsive, she was found to have a blood sugar of 43. She was administered oral replacement by family to help assist with bringing her blood sugar back up. The patient at this time is alert and is able to provide history. She answers "I do not know" when asked why she administered the insulin. She denies wanting to harm herself or anyone else at this time but is vague about why she took the insulin. Her states that she has administered insulin intentionally in the past to try to harm herself. He is concerned that she is suicidal and is requesting that she be hospitalized. The patient injured her right hand when she was being attended to at home. states that she hit her hand against the table at home when she was displaying convulsive activity. (HERNANDEZ ANDREWS MD) Review of Systems Review of Systems Constitutional: Denies fever or chills [] Eyes: Denies change in visual acuity, redness, or eye pain [] HENT: Denies nasal congestion or sore throat [] Respiratory: Denies cough or shortness of breath [] Cardiovascular: Denies chest pain or edema [] GI: Denies abdominal pain, nausea, vomiting, bloody stools or diarrhea [] : Denies dysuria or hematuria [] Musculoskeletal: Right hand pain [] Integument: Denies rash or skin lesions [] Neurologic: Denies headache, focal weakness or sensory changes [] All other systems were reviewed and found to be within normal limits, except as documented in this note. (HERNANDEZ ANDREWS MD) Allergies Allergies Allergies Coded Allergies Type Severity Reaction Last Updated Verified Penicillins Allergy Unknown 06/09/21 Yes methadone Allergy Unknown 06/09/21 Yes morphine Allergy Unknown 06/09/21 Yes (HERNANDEZ ANDREWS MD) Physical Exam Physical Exam Constitutional: Alert, afebrile, no acute distress. [] HENT: Normocephalic, atraumatic, bilateral external ears normal, oropharynx moist, no oral exudates, nose normal. [] Eyes: PERRLA, EOMI, conjunctiva normal, no discharge. [] Neck: Normal range of motion, no tenderness, supple, no stridor. [] Cardiovascular:Heart rate regular rhythm, no murmur [] Lungs & Thorax: Bilateral breath sounds clear to auscultation [] Abdomen: Bowel sounds normal, soft, no tenderness, no masses, no pulsatile masses. [] Skin: Warm, dry, no erythema, no rash. [] Back: No tenderness, no CVA tenderness. [] Extremities: Multiple abrasions to dorsum of right hand, tenderness to palpation over second and third metacarpals. No cyanosis, no clubbing, ROM intact, no edema. [] Neurologic: Alert and oriented X 3, normal motor function, normal sensory function, no focal deficits noted. [] Psychologic: Affect flat, judgement normal, mood depressed, denies suicidal or homicidal ideation. [] (HERNANDEZ ANDREWS MD) Current Patient Data Vital Signs Vital Signs Date Time Temp Pulse Resp B/P (MAP) Pulse Ox O2 Delivery O2 Flow Rate FiO2 11/24/21 16:30 98.2 88 20 143/87 (105) 94 Room Air Lab Results Laboratory Tests Test 11/24/21 17:05 White Blood Count 19.5 x10^3/uL Red Blood Count 4.66 x10^6/uL Hemoglobin 13.6 g/dL Hematocrit 40.8 % Mean Corpuscular Volume 88 fL Mean Corpuscular Hemoglobin 29 pg Mean Corpuscular Hemoglobin Concent 33 g/dL Red Cell Distribution Width 14.2 % Platelet Count 389 x10^3/uL Neutrophils (%) (Auto) 84 % Lymphocytes (%) (Auto) 9 % Monocytes (%) (Auto) 7 % Eosinophils (%) (Auto) 0 % Basophils (%) (Auto) 1 % Neutrophils # (Auto) 16.3 x10^3uL Lymphocytes # (Auto) 1.7 x10^3/uL Monocytes # (Auto) 1.3 x10^3/uL Eosinophils # (Auto) 0.0 x10^3/uL Basophils # (Auto) 0.1 x10^3/uL Urine Color Pending Urine Clarity Pending Urine pH Pending Urine Specific [place] Pending Urine Protein Pending Urine Glucose (UA) Pending Urine Ketones (Stick) Pending Urine Blood Pending Urine Nitrite Pending Urine Bilirubin Pending Urine Urobilinogen Dipstick Pending Urine Leukocyte Esterase Pending Urine RBC Pending Urine WBC Pending Urine Bacteria Pending Urine Test Negative Urine Opiates Screen Neg Urine Methadone Screen Neg Urine Barbiturates Neg Urine Phencyclidine Screen Neg Urine Amphetamine/Methamphetamine Neg Urine Benzodiazepines Screen Neg Urine Cocaine Screen Neg Urine Cannabinoids Screen Neg Urine Ethyl Alcohol Neg (HERNANDEZ ANDREWS MD) EKG EKG Not performed[] (HERNANDEZ ANDREWS MD) Radiology/Procedures Radiology/Procedures [] (HERNANDEZ ANDREWS MD) Radiology/[place] [address] IMAGING REPORT Signed PATIENT: REA ESPINO LACCOUNT: [id number] : 1965 LOCATION: ER AGE: 56 SEX: F EXAM STATUS: REG ER ORD. PHYSICIAN: HERNANDEZ ANDREWS MD REASON: right hand pain and swelling, struck against wooden table PROCEDURE: HAND RIGHT 3V Exam: Right hand 3 views INDICATION: Right hand pain, swelling TECHNIQUE: Frontal, lateral and oblique views of the right hand Comparisons: None FINDINGS: Bone mineralization is normal. No acute or healed fractures. Soft tissues are unremarkable. Joint spaces are well-maintained. IMPRESSION: No acute osseous abnormality Electronically signed by: Cielo Jefferson MD (11/24/2021 7:00 PM) [facility] DICTATED AND SIGNED BY: CIELO JEFFERSON MD DATE: 11/24/211858 CC: HERNANDEZ ANDREWS MD; JOANN URIAS (TONIE YANEZ MD) Heart Score C/O Chest Pain: No Risk Factors: Risk Factors: DM, Current or recent (<one month) smoker, HTN, HLP, family history of CAD, obesity. Risk Scores: Risk Factors: DM, Current or recent (<one month) smoker, HTN, HLP, family history of CAD, obesity. (HERNANDEZ ANDREWS MD) C/O Chest Pain: N/A (KEISHA JAMES MD) Course & Med Decision Making Course & Med Decision Making Pertinent Labs and Imaging studies reviewed. (See chart for details) Blood work and imaging obtained. At time of signout results of labs and imaging are pending. If patient able to be medically cleared, will need psychiatric assessment in the emergency department. Care of patient signed out to Dr. Yanez at shift change. [] (HERNANDEZ ANDREWS MD) Course & Med Decision Making See [facility] chart for details prior shift change. See PAT evaluation. Pt.stable for in patient psych. hospitalization. 0100 hrs. 11/25/21 PCR COVID pending. Rapid is negative. Endorsed to Dr. James at shift change. Impression: 1. Over Dosage Insulin 2. Suicidal ideation/attempt 3. Diabetes 4. Anxiety (TONIE YANEZ MD) Course & Med Decision Making Accepted patient care at shift change. Pending placement after COVID PCR result. Patient's sister and daughter wondering about possible safety plan to discharge home. PAT member Evita came back to reevaluate the patient and speak with , will stick to original plan since patient's daughter is a minor and patient has attempted to overdose with insulin multiple times in the past Patient is full reviewed by aJson, concerned about the elevated white count. Likely due to stress, no signs of infection. Physician requesting redraw of CBC to see if white count is trending down Care transitioned to Dr. Dee at shift change (KEISHA JAMES MD) Dragon Disclaimer Dragon Disclaimer This electronic medical record was generated, in whole or in part, using a voice recognition dictation system. (HERNANDEZ ANDREWS MD) Departure Departure: Impression: Primary Impression: Drug overdose Additional Impression: Injury of right hand [facility] Condition: STABLE Referrals: JOANN URIAS (PCP) Dragon Disclaimer This chart was dictated in whole or in part using Voice Recognition software in a busy, high-work load, and often noisy Emergency Department environment. It may contain unintended and wholly unrecognized errors or omissions. (TONIE YANEZ MD) Dragon Disclaimer This chart was dictated in whole or in part using Voice Recognition software in a busy, high-work load, and often noisy Emergency Department environment. It may contain unintended and wholly unrecognized errors or omissions. (TONIE YANEZ MD) Problem Qualifiers Primary Impression: Drug overdose Encounter type: initial encounter Injury intent: intentional self-harm Qualified Codes: T50.902A - Poisoning by unspecified drugs, medicaments and biological substances, intentional self-harm, initial encounter Additional Impression: Injury of right hand Encounter type: initial encounter Qualified Codes: S69.91XA - Unspecified injury of right wrist, hand and finger(s), initial encounter HERNANDEZ ANDREWS MD November 24, 2021 17:21 TONIE YANEZ MD November 24, 2021 22:12 KEISHA JAMES MD November 25, 2021 16:31
[2021-11-24 17:29] LABS: BASO # 0.1 x10^3/uL (0.0-0.2); BASO % 1 % (0-3); EOS % 0 % (0-3); HEMATOCRIT 40.8 % (36.0-47.0); HEMOGLOBIN 13.6 g/dL (12.0-15.5); LYMPH # 1.7 x10^3/uL (1.0-4.8); LYMPH % 9 % (24-48); MEAN CORPUSCULAR HEMOGLOBIN 29 pg (25-35); MEAN CORPUSCULAR HGB CONC 33 g/dL (31-37); MEAN CORPUSCULAR VOLUME 88 fL (79-100); MONO # 1.3 x10^3/uL (0.0-1.1); MONO % 7 % (0-9); NEUT # 16.3 x10^3uL (1.8-7.7); NEUT % 84 % (31-73); PLATELET COUNT 389 x10^3/uL (140-400); RED BLOOD COUNT 4.66 x10^6/uL (3.50-5.40); RED CELL DISTRIBUTION WIDTH 14.2 % (11.5-14.5); WHITE BLOOD COUNT 19.5 x10^3/uL (4.0-11.0)
[2021-11-24 17:39] LABS: BARBITURATES NEG (NEG); BENZODIAZEPINES NEG (NEG); CANNABINOIDS NEG (NEG); COCAINE NEG (NEG); METHADONE NEG (NEG); OPIATES NEG (NEG); PHENCYCLIDINE NEG (NEG)
[2021-11-24 17:41] LABS: U PREG PATIENT NEGATIVE (NEG)
[2021-11-24 17:43] LABS: AMPHETAMINE/METHAMPHETAMINE NEG (NEG)
[2021-11-24 18:09] LABS: CLARITY,URINE CLEAR; COLOR,URINE YELLOW; GLUCOSE,URINE NEG (NEG)
[2021-11-24 18:10] LABS: BACTERIA,URINE 0 /HPF (0-FEW); NITRITE,URINE NEG (NEG); SQUAMOUS EPITHELIAL CELL,UR FEW /LPF; UROBILINOGEN,URINE 0.2 mg/dL (0.2 mg/dL)
[2021-11-24 18:12] LABS: CALCIUM 9.3 mg/dL (8.5-10.1); CREATININE 0.8 mg/dL (0.6-1.0); GFR 73.7
[2021-11-24 18:18] LABS: ALBUMIN 3.5 g/dL (3.4-5.0); ALBUMIN/GLOBULIN RATIO 0.9 (1.0-1.7); TOTAL BILIRUBIN 0.3 mg/dL (0.2-1.0)
[2021-11-24 18:21] LABS: TOTAL PROTEIN 7.2 g/dL (6.4-8.2)
--- NOTE | 2021-11-24 19:03 | RAD ---
Exam: Right hand 3 views INDICATION: Right hand pain, swelling TECHNIQUE: Frontal, lateral and oblique views of the right hand Comparisons: None FINDINGS: Bone mineralization is normal. No acute or healed fractures. Soft tissues are unremarkable. Joint spa radha are well-maintained. IMPRESSION: No acute osseous abnormality Electronically signed by: Cielo Vernon MD (11/24/2021 7:00 PM) [facility]
[2021-11-24 20:29] LABS: INFLUENZA A PATIENT NEGATIVE (NEGATIVE); INFLUENZA B PATIENT NEGATIVE (NEGATIVE)
[2021-11-25 18:00] LABS: BASO # 0.1 x10^3/uL (0.0-0.2); BASO % 1 % (0-3); EOS # 0.1 x10^3/uL (0.0-0.7); EOS % 1 % (0-3); HEMATOCRIT 37.2 % (36.0-47.0); HEMOGLOBIN 12.6 g/dL (12.0-15.5); LYMPH # 2.5 x10^3/uL (1.0-4.8); LYMPH % 27 % (24-48); MEAN CORPUSCULAR HEMOGLOBIN 30 pg (25-35); MEAN CORPUSCULAR HGB CONC 34 g/dL (31-37); MEAN CORPUSCULAR VOLUME 87 fL (79-100); MONO # 0.8 x10^3/uL (0.0-1.1); MONO % 8 % (0-9); NEUT # 5.7 x10^3uL (1.8-7.7); NEUT % 62 % (31-73); PLATELET COUNT 371 x10^3/uL (140-400); RED BLOOD COUNT 4.28 x10^6/uL (3.50-5.40); WHITE BLOOD COUNT 9.2 x10^3/uL (4.0-11.0)
[2021-11-25 19:04] VITALS: BP 124/64
== END ==
LOC: ER 15:50
DX: T38.3X2A Poisoning by insulin and oral hypoglycemic [antidiabetic] drugs, intentional self-harm, initial encounter (principal); S60.511A Abrasion of right hand, initial encounter; E11.9 Type 2 diabetes mellitus without complications; F41.9 Anxiety disorder, unspecified; F32.9 Major depressive disorder, single episode, unspecified; Z20.822 Contact with and (suspected) exposure to COVID-19; Z88.0 Allergy status to penicillin; Z88.5 Allergy status to narcotic agent; Z88.8 Allergy status to other drugs, medicaments and biological substances; X58.XXXA Exposure to other specified factors, initial encounter; Y93.89 Activity, other specified; Y92.89 Other specified places as the place of occurrence of the external cause; Y99.8 Other external cause status
CPT/HCPCS: 36415; 73130; 80053; 80307; 81001; 81025; 82947; 85025; 87428; 93005; 99285; U0003